=== PATIENT | female | born 1960 | race African-American/Black ===

== ENCOUNTER 2017-11-08 14:14 | Emergency (ER) | payer BC ==
[~2017-11-08] VITALS: Ht 160 cm; Wt 72.6 kg
[~2017-11-08 14:14] MED LIST: ATIVAN1 MG PO; FIORICET 50-321 EACH PO; MAXZIDE 75-501 EAC1 PO; NORCO 5-325 TA1 EACH PO; ZOFRAN ODT4 MG PO; ZOLOFT100 MG PO
[2017-11-08] MEDS ORDERED: ULTRAM 50MG TAB50 MG PO (16:24)
[2017-11-08 16:45] VITALS: BP 134/87
[2018-07-06] MEDS ORDERED: COLACE 100 MG100 MG PO (13:36)
[2018-07-06] MEDS ORDERED: CITRATE OF MAG296 M1 PO (13:36)
[2018-07-06] MEDS ORDERED: MIRALAX17 GM PO (13:36)
[2018-07-06] MEDS ORDERED: SENNA8.6 MG PO (13:36)
[2018-07-06] MEDS ORDERED: PROTONIX40 M1 PO (13:36)
[2018-07-06] MEDS ORDERED: BISAC-EVAC10 MG RECTAL (13:36)
[2018-07-06] MEDS ORDERED: NORCO 5-325 TA1 EACH PO (13:38)
[2018-07-06] MEDS ORDERED: HYOSCYAMINE0.125 M1 PO (13:38)
== END 2017-11-08 16:45 | disposition home or self-care (01) ==
LOC: ER 14:14
DX: S16.1XXA Strain of muscle, fascia and tendon at neck level, initial encounter (principal); S06.0X9A Concussion with loss of consciousness of unspecified duration, initial encounter; Z88.8 Allergy status to other drugs, medicaments and biological substances; W00.0XXA Fall on same level due to ice and snow, initial encounter; Y93.89 Activity, other specified; Y92.89 Other specified places as the place of occurrence of the external cause; Y99.8 Other external cause status

== ENCOUNTER 2018-12-07 13:25 | Emergency (ER) | payer BC ==
[~2018-12-07] VITALS: Ht 160 cm; Wt 72.6 kg
[~2018-12-07 13:25] MED LIST changes: +BISAC-EVAC10 MG RECTAL; +CITRATE OF MAG296 M1 PO; +COLACE 100 MG100 MG PO; +HYOSCYAMINE0.125 M1 PO; +MIRALAX17 GM PO; +PROTONIX40 M1 PO; +SENNA8.6 MG PO; +ULTRAM 50MG TAB50 MG PO
[2018-12-07] MEDS ORDERED: BUTALB-APAP-CA1 EACH PO (17:06)
[2018-12-07] MEDS ORDERED: ONDANSETRON HCL4 M2 PO (17:06)
[2018-12-07 17:20] VITALS: BP 131/86
== END 2018-12-07 17:21 | disposition home or self-care (01) ==
LOC: ER 13:25
DX: G43.909 Migraine, unspecified, not intractable, without status migrainosus (principal); I10 Essential (primary) hypertension; Z88.8 Allergy status to other drugs, medicaments and biological substances